=== PATIENT | male | born 1990 | race Caucasian/White ===

== ENCOUNTER 2017-02-03 17:19 | Emergency (ER) | payer MEDICAID, OTHER, SELFPAY ==
[~2017-02-03] VITALS: Ht 193 cm; Wt 112.0 kg
[2017-02-03] MEDS ORDERED: NORCO, ANEXSIA 5/325MG TABLET (HYDROcodone/ACETAMINOPHEN) PO ONE (19:15)
[2017-02-03] MEDS ORDERED: NAPR500T PO (19:44)
--- NOTE | 2017-02-03 19:46 | REP ---
LEFT KNEE, FIVE VIEWS: HISTORY: Patella dislocation. There is no acute fracture or dislocation. The joint spaces are normal in appearance. IMPRESSION: There is no acute fracture or dislocation. Signed by Kody Chester MD 02/03/2017 07:55 P
[2017-02-03 20:03] VITALS: BP 147/71
== END 2017-02-03 20:05 | disposition home or self-care (01) ==
LOC: M ED 17:19
DX: M25.562 Pain in left knee (principal)

== ENCOUNTER 2024-08-15 12:26 | Emergency (ER) | payer MEDICAID ==
[~2024-08-15] VITALS: Ht 193 cm; Wt 122.6 kg
[~2024-08-15 12:26] MED LIST: NAPR-837 PO
[2024-08-15] MEDS: IBUPROFEN 600MG TAB PO ONE (18:40)
[2024-08-15 20:45] VITALS: BP 128/78; TEMP 97.1; O2SAT 98
[2024-08-15] MEDS: ACETAMINOPHEN 500 MG TAB PO ONE (20:53)
== END 2024-08-15 21:12 | disposition home or self-care (01) ==
LOC: M ED 12:26
DX: S62.652A Nondisplaced fracture of middle phalanx of right middle finger, initial encounter for closed fracture (principal); W22.09XA Striking against other stationary object, initial encounter; M79.604 Pain in right leg; M79.641 Pain in right hand; F17.200 Nicotine dependence, unspecified, uncomplicated; F12.10 Cannabis abuse, uncomplicated; Z79.1 Long term (current) use of non-steroidal anti-inflammatories (NSAID); Y92.009 Unspecified place in unspecified non-institutional (private) residence as the place of occurrence of the external cause; Y93.89 Activity, other specified; Y99.9 Unspecified external cause status